=== PATIENT | male | born 1940 | race Hispanic/Latino ===

== ENCOUNTER 2019-05-28 11:01 | Emergency (ER) | payer OTHER ==
--- OUTSIDE RECORDS SUMMARY | 2019-05-28 11:04 | XMS REPORT ---
:1940 [facility] Address [address] [place] [address] Dr. Bravo [address] [place] [id number] Care Team Providers Name Role Phone Unavailable Unavailable Unavailable Problems This patient has no known problems. Allergies, Adverse Reactions, Alerts This patient has no known allergies or adverse reactions. Medications This patient has no known medications.
[2019-05-28] MEDS ORDERED: NA CHLORIDE 0.9% 500 ML ONE (11:35)
[2019-05-28] MEDS ORDERED: ONDANSETRON 4 MG/2 ML VIAL ONE (11:35)
[2019-05-28] MEDS ORDERED: MORPHINE 2 MG/ML SYR ONE (11:35)
[2019-05-28 11:52] LABS: Absolute Lymphocytes (CBC) 1.5 K/uL (0.7-4.9); Basophils % 0.8 % (0-1.3); Hematocrit 37.9 % (39.6-49.0); Lymphocytes % 25.1 % (15.3-44.8); MPV 9.5 fL (7.6-11.3); RBC Red Blood Cell Count 4.17 M/uL (4.33-5.43)
--- NOTE | 2019-05-28 12:06 | RAD REPORT ---
EXAM DESCRIPTION: RAD - Chest Single View - 05/28/2019 11:52 am CLINICAL HISTORY: PAIN Chest pain. COMPARISON: Chest Pa And Lat (2 Views) dated 04/14/2019; Chest Pa And Lat (2 Views) dated 05/14/2018; Chest Pa And Lat (2 Views) dated 04/08/2017; Chest Pa And Lat (2 Views) dated 04/08/2016 FINDINGS: Portable technique limits examination quality. The lungs are grossly clear. The heart is normal in size. Left posterior old rib fractures.
[2019-05-28 12:08] LABS: Albumin 3.3 g/dL (3.4-5.0); Bilirubin Total 0.6 mg/dL (0.2-1.0); Potassium 3.8 mmol/L (3.5-5.1); Protein, Total 7.2 g/dL (6.4-8.2)
--- NOTE | 2019-05-28 12:58 | RAD REPORT ---
EXAM DESCRIPTION: CT - Chest Abdomen Pelvis W Cont - 05/28/2019 12:42 pm CLINICAL HISTORY: Chest and abdomen pain. TRAUMA COMPARISON: No comparisons TECHNIQUE: Approximately 100 mL nonionic IV contrast was administered to the patient. All CT scans are performed using dose optimization technique as appropriate and may include automated exposure control or mA/KV adjustment according to patient size. FINDINGS: Ill-defined infiltrate is present in both posterior gutters, greater on the left, suspicio us for aspiration or pneumonia.No pleural or pericardial effusion.No intrathoracic adenopathy. The liver contains several benign-appearing cysts. No aggressive liver lesion. Cholelithiasis. The sp moses, pancreas, adrenal glands and kidneys are within normal limits. No bowel obstruction, free air, free fluid or abscess. No pathologic lymphadenopathy in the abdomen or pelvis. Evidence of prior bilateral inguinal hernia repair. Healing left posterior rib fractures are seen. No acute rib fracture evident. IMPRESSION: Acute trauma related abnormality not seen. Ill-defined infiltrate in both lung bases may be secondary to aspiration or developing pneumonia. Cholelithiasis.
--- NOTE | 2019-05-28 13:38 | ER ---
Nurse's Notes [facility] Name: Sona Wright Age: 78 yrs Sex: Male : 1940 Arrival Date: 05/28/2019 Time: 11:04 Bed 6 Private MD: April Morejon C Diagnosis: Fall due to bumping against object;Parkinson's disease;Contusion of right back wall of thorax;Pneumonia due to other specified bacteria Presentation: 05/28 11:09 Presenting complaint: states: "At 3:15 this morning, he lost his balance and fell aj1 on the floor and he already has fractured ribs" Patient reports right mid back pain. Denies hitting his head. Care prior to arrival: None. Mechanism of Injury: Fall from standing position. Trauma event details: Injury occurred in the [facility]. 11:09 Acuity: TYREE 3 aj1 11:09 Method Of Arrival: Wheelchair aj1 11:12 Transition of care: patient was not received from another setting of care. Onset of aj1 symptoms was May 28, 2019 at 03:15. Risk Assessment: Do you want to hurt yourself or someone else? Patient reports no desire to harm self or others. Initial Sepsis Screen: Does the patient meet any 2 criteria? No. Patient's initial sepsis screen is negative. Does the patient have a suspected source of infection? No. Patient's initial sepsis screen is negative. Triage Assessment: 11:14 General: Appears in no apparent distress. comfortable, Behavior is calm, cooperative, aj1 appropriate for age. Pain: Complains of pain in right subscapular area. Neuro: Level of Consciousness is awake, alert, obeys commands. Cardiovascular: Patient's skin is warm and dry. Respiratory: Airway is patent Respiratory effort is even, unlabored, Respiratory pattern is regular, symmetrical. Trauma Activation: Not Applicable Physician: ED Physician; Name: ; Notified At: ; Arrived At: Physician: General Surgeon; Name: ; Notified At: ; Arrived At: Physician: Radiology; Name: ; Notified At: ; Arrived At: Physician: Respiratory; Name: ; Notified At: ; Arrived At: Physician: Lab; Name: ; Notified At: ; Arrived At: Historical: - Allergies: 11:14 No Known Allergies; aj1 - Home Meds: 11:14 multivitamin oral cap daily [Active]; carbidopa-levodopa 25-100 mg Oral tab 2 tabs 3 aj1 times per day [Active]; atorvastatin 20 mg oral tab 1 tab once daily [Active]; felodipine 2.5 mg oral Tb24 1 tab once daily [Active]; Vitamin D3 oral oral daily [Active]; Probiotic oral oral daily [Active]; - PMHx: 11:14 Parkinsons; Hypertension; Hyperlipidemia; aj1 - Immunization history: Last tetanus immunization: unknown. - Social history:: Smoking status: Patient/guardian denies using tobacco. - Ebola Screening: : Patient denies travel to an Ebola-affected area in the 21 days before illness onset. - Family history:: not pertinent. Screenin:09 Abuse screen: Denies threats or abuse. Denies injuries from another. Tuberculosis aj1 screening: No symptoms or risk factors identified. 11:24 Nutritional screening: No deficits noted. Fall Risk Fall in past 12 months (25 points). la1 Secondary diagnosis (15 points) No IV (0 pts). Ambulatory Aid- None/Bed Rest/Nurse Assist (0 pts). Gait- Weak (10 pts.). Primary Survey: 11:09 NO uncontrolled hemorrhage observed. A: The patient is alert. Airway: patent. aj1 Breathing/Chest: Respiratory pattern: regular, Respiratory effort: spontaneous, unlabored. Circulation: Skin color: pink. Disability Alert. 11:25 Exposure/Environment: A warming method has been applied: A warm blanket has been la1 provided to the patient. 11:25 Reassessment Airway Airway Breathing/Chest Respiratory pattern Regular Respiratory la1 effort Spontaneous Circulation Color [place] Temperature Warm Disability Alert. 12:16 Reassessment Airway Airway Patent Breathing/Chest Respiratory pattern Regular la1 Respiratory effort Spontaneous Unlabored Circulation Color [place] Temperature Warm Disability Alert. Secondary Survey: 11:24 Musculoskeletal: Reports pain in right subscapular area. la1 Assessment: 11:24 General: Appears in no apparent distress. Behavior is calm, cooperative. Pain: la1 Complains of pain in right subscapular area. Neuro: Level of Consciousness is awake, alert, obeys commands, Oriented to person, place, situation. Cardiovascular: Capillary refill < 3 seconds Patient's skin is warm and dry. Respiratory: Airway is patent Respiratory effort is even, unlabored, Respiratory pattern is regular, symmetrical, Breath sounds are clear bilaterally. GI: No signs and/or symptoms were reported involving the gastrointestinal system. Abdomen is round non-distended. : No signs and/or symptoms were reported regarding the genitourinary system. 13:48 Reassessment: Patient is alert, oriented x 3, equal unlabored respirations, skin aa5 warm/dry/pink. 14:00 Reassessment: To bedside to d/c pt home, pt's requesting prescription for pain aa5 medicine, MD notified. . Vital Signs: 11:09 BP 133 / 77; Pulse 65; Resp 18; Temp 97.9; Pulse Ox 98% on R/A; Weight 60.33 kg (R); aj1 Height 5 ft. 7 in. (170.18 cm) (R); Pain 4/10; 12:15 BP 141 / 73; Pulse 76; Resp 16; Pulse Ox 98% on R/A; la1 13:50 BP 123 / 59; Pulse 62; Resp 16 S; Temp 97.6(TE); Pulse Ox 98% on R/A; aa5 11:09 Body Mass Index 20.83 (60.33 kg, 170.18 cm) aj1 [place] Coma Score: 11:09 Eye Response: spontaneous(4). Verbal Response: oriented(5). Motor Response: obeys aj1 commands(6). Total: 15. 13:50 Eye Response: spontaneous(4). Verbal Response: oriented(5). Motor Response: obeys aa5 commands(6). Total: 15. Trauma Score (Adult): 11:09 Eye Response: spontaneous(1); Verbal Response: oriented(1); Motor Response: obeys aj1 commands(2); Systolic BP: > 89 mm Hg(4); Respiratory Rate: 10 to 29 per min(4); [place] Score: 15; Trauma Score: 12 13:50 Eye Response: spontaneous(1); Verbal Response: oriented(1); Motor Response: obeys aa5 commands(2); Systolic BP: > 89 mm Hg(4); Respiratory Rate: 10 to 29 per min(4); [place] Score: 15; Trauma Score: 12 ED Course: 11:04 Patient arrived in ED. as 11:04 April Morejon MD is Private Physician. as 11:09 Patient has correct armband on for positive identification. aj1 11:09 Patient maintains SpO2 saturation greater than 95% on room air. aj1 11:10 Triage completed. aj1 11:14 Arm band placed on Patient placed in an exam room. aj1 11:17 Ernesto Frias MD is Attending Physician. shannon 11:24 Munir Pang RN is Primary Nurse. la1 11:25 Thermoregulation: warm blanket given to patient. la1 11:37 Radiology exam delayed due to lab results not completed at this time. (BUN/Creatinine). kw1 11:41 Inserted saline lock: 20 gauge in right forearm, using aseptic technique. la1 11:51 Chest Single View XRAY In Process Unspecified. EDMS 12:42 CT completed. Patient tolerated procedure well. Patient moved back from CT. kw1 12:42 CT Chest, Abdomen, Pelvis - W/Contrast: iv only, trauma In Process Unspecified. EDMS 12:52 Patient moved back from CT. sv 13:37 April Morejon MD is Referral Physician. shannon 14:00 No provider procedures requiring assistance completed. IV discontinued, intact, aa5 bleeding controlled, No redness/swelling at site. Pressure dressing applied. Administered Medications: 11:40 Drug: NS 0.9% 500 ml Route: IV; Rate: bolus; Site: right forearm; la1 12:33 Follow up: IV Status: Completed infusion la1 11:40 Drug: Zofran 4 mg Route: IVP; Site: right forearm; la1 12:33 Follow up: Response: No adverse reaction la1 11:41 Not Given (Other Intervention Used): morphine 2 mg Sub-Q once; RASS on ADMIN: Combtv4, la1 Very Agttd3, Agttd2, Rstlss1, AlertClm0, Drwsy-1, Lt Sdtn-2, Mod Sdtn-3, Dp Sdtn-4, UnArsble-5 11:41 Drug: morphine 2 mg Route: IVP; Site: right forearm; la1 12:33 Follow up: Response: No adverse reaction; Pain is decreased la1 13:48 Drug: Augmentin 875 mg Route: PO; aa5 14:00 Follow up: Response: No adverse reaction; Medication administered at discharge. aa5 Output: 14:00 Urine: 200ml (Voided); Total: 200ml. aa5 Outcome: 13:38 Discharge ordered by . shannon 13:38 Patient's length of stay was not longer than 2 hours. aa5 14:02 Discharged to home via wheelchair, with family. aa5 14:02 Condition: stable 14:02 Discharge instructions given to patient, Pt's Instructed on discharge instructions, follow up and referral plans. medication usage, Need for incentive spirometer use Demonstrated understanding of instructions, follow-up care, medications, Prescriptions given X 2. 14:07 Patient left the ED. aa5 Signatures: Dispatcher [employer] EDMS Amina Botello RN RN aj1 Agustina Pfeiffer RN RN sv Anderson, Corey, MD MD cha Martinez, Amelia as Calderon, Audri RN RN aa5 Munir Pang RN RN la1 Aniya Quach kw1 Corrections: (The following items were deleted from the chart) 14:09 14:00 Urine 200, (Voided), Output Total 200. aa5 aa5
--- NOTE | 2019-05-28 13:38 | EDPHYS ---
Physician Documentation [facility] Name: Sona Wright Age: 78 yrs Sex: Male : 1940 Arrival Date: 05/28/2019 Time: 11:04 Bed 6 Private MD: April Morejon C ED Physician Ernesto Frias HPI: 05/28 11:33 This 78 yrs old Male presents to ER via Wheelchair with complaints of Fall shannon Injury. 11:33 Details of fall: The patient fell from an upright position, while walking. Onset: The shannon symptoms/episode began/occurred last night. Associated injuries: The patient sustained upper back injury, contusion, pain. Severity of symptoms: At their worst the symptoms were mild, moderate, in the emergency department the symptoms are unchanged. The patient has experienced similar episodes in the past, several times. Historical: - Allergies: 11:14 No Known Allergies; aj1 - Home Meds: 11:14 multivitamin oral cap daily [Active]; carbidopa-levodopa 25-100 mg Oral tab 2 tabs 3 aj1 times per day [Active]; atorvastatin 20 mg oral tab 1 tab once daily [Active]; felodipine 2.5 mg oral Tb24 1 tab once daily [Active]; Vitamin D3 oral oral daily [Active]; Probiotic oral oral daily [Active]; - PMHx: 11:14 Parkinsons; Hypertension; Hyperlipidemia; aj1 - Immunization history: Last tetanus immunization: unknown. - Social history:: Smoking status: Patient/guardian denies using tobacco. - Ebola Screening: : Patient denies travel to an Ebola-affected area in the 21 days before illness onset. - Family history:: not pertinent. ROS: 11:33 Constitutional: Negative for fever, chills, and weight loss, Eyes: Negative for injury, shannon pain, redness, and discharge, ENT: Negative for injury, pain, and discharge, Neck: Negative for injury, pain, and swelling, Cardiovascular: Negative for chest pain, palpitations, and edema, Abdomen/GI: Negative for abdominal pain, nausea, vomiting, diarrhea, and constipation, Back: Negative for injury and pain, : Negative for injury, bleeding, discharge, and swelling, MS/Extremity: Negative for injury and deformity, Skin: Negative for injury, rash, and discoloration, Neuro: Negative for headache, weakness, numbness, tingling, and seizure, Psych: Negative for depression, anxiety, suicide ideation, homicidal ideation, and hallucinations, Allergy/Immunology: Negative for hives, rash, and allergies, Endocrine: Negative for neck swelling, polydipsia, polyuria, polyphagia, and marked weight changes, Hematologic/Lymphatic: Negative for swollen nodes, abnormal bleeding, and unusual bruising. 11:33 Respiratory: Positive for cough. Exam: 11:33 Constitutional: This is a well developed, well nourished patient who is awake, alert, shannon and in no acute distress. Head/Face: Normocephalic, atraumatic. Eyes: Pupils equal round and reactive to light, extra-ocular motions intact. Lids and lashes normal. Conjunctiva and sclera are non-icteric and not injected. Cornea within normal limits. Periorbital areas with no swelling, redness, or edema. ENT: Nares patent. No nasal discharge, no septal abnormalities noted. Tympanic membranes are normal and external auditory canals are clear. Oropharynx with no redness, swelling, or masses, exudates, or evidence of obstruction, uvula midline. Mucous membranes moist. Neck: Trachea midline, no thyromegaly or masses palpated, and no cervical lymphadenopathy. Supple, full range of motion without nuchal rigidity, or vertebral point tenderness. No Meningismus. Cardiovascular: Regular rate and rhythm with a normal S1 and S2. No gallops, murmurs, or rubs. Normal PMI, no JVD. No pulse deficits. Respiratory: Lungs have equal breath sounds bilaterally, clear to auscultation and percussion. No rales, rhonchi or wheezes noted. No increased work of breathing, no retractions or nasal flaring. Abdomen/GI: Soft, non-tender, with normal bowel sounds. No distension or tympany. No guarding or rebound. No evidence of tenderness throughout. Back: No spinal tenderness. No costovertebral tenderness. Full range of motion. Male : Normal genitalia with no discharge or lesions. Skin: Warm, dry with normal turgor. Normal color with no rashes, no lesions, and no evidence of cellulitis. MS/ Extremity: Pulses equal, no cyanosis. Neurovascular intact. Full, normal range of motion. Neuro: Awake and alert, GCS 15, oriented to person, place, time, and situation. Cranial nerves II-XII grossly intact. Motor strength 5/5 in all extremities. Sensory grossly intact. Cerebellar exam normal. Normal gait. Psych: Awake, alert, with orientation to person, place and time. Behavior, mood, and affect are within normal limits. 11:33 Chest/axilla: Inspection: normal, no acute changes, Palpation: tenderness, that is moderate, of the right lateral posterior chest, Axilla: are normal, Lymph nodes: lymphadenopathy is not appreciated. Vital Signs: 11:09 BP 133 / 77; Pulse 65; Resp 18; Temp 97.9; Pulse Ox 98% on R/A; Weight 60.33 kg (R); aj1 Height 5 ft. 7 in. (170.18 cm) (R); Pain 4/10; 12:15 BP 141 / 73; Pulse 76; Resp 16; Pulse Ox 98% on R/A; la1 13:50 BP 123 / 59; Pulse 62; Resp 16 S; Temp 97.6(TE); Pulse Ox 98% on R/A; aa5 11:09 Body Mass Index 20.83 (60.33 kg, 170.18 cm) aj1 [place] Coma Score: 11:09 Eye Response: spontaneous(4). Verbal Response: oriented(5). Motor Response: obeys aj1 commands(6). Total: 15. 13:50 Eye Response: spontaneous(4). Verbal Response: oriented(5). Motor Response: obeys aa5 commands(6). Total: 15. Trauma Score (Adult): 11:09 Eye Response: spontaneous(1); Verbal Response: oriented(1); Motor Response: obeys aj1 commands(2); Systolic BP: > 89 mm Hg(4); Respiratory Rate: 10 to 29 per min(4); [place] Score: 15; Trauma Score: 12 13:50 Eye Response: spontaneous(1); Verbal Response: oriented(1); Motor Response: obeys aa5 commands(2); Systolic BP: > 89 mm Hg(4); Respiratory Rate: 10 to 29 per min(4); [place] Score: 15; Trauma Score: 12 MDM: 11:17 Patient medically screened. [facility] 11:36 Data reviewed: vital signs, nurses notes, lab test result(s), EKG, radiologic studies. [facility] 05/28 11:32 Order name: CBC with Diff; Complete Time: 12:43 [facility] 05/28 11:32 Order name: Comprehensive Metabolic Panel; Complete Time: 12:43 [facility] 05/28 11:32 Order name: CT Chest, Abdomen, Pelvis - W/Contrast: iv only, trauma; Complete Time: [facility] 13:36 05/28 11:32 Order name: Lipase; Complete Time: 12:43 [facility] 05/28 11:32 Order name: INCENTIVE SPIROMETRY [facility] 05/28 13:09 Order name: Urine Dipstick--Ancillary (enter results) 05/28 11:32 Order name: Urine Dipstick-Ancillary (obtain specimen); Complete Time: 13:26 [facility] 05/28 11:32 Order name: Chest Single View XRAY; Complete Time: 12:43 [facility] Administered Medications: 11:40 Drug: NS 0.9% 500 ml Route: IV; Rate: bolus; Site: right forearm; la1 12:33 Follow up: IV Status: Completed infusion la1 11:40 Drug: Zofran 4 mg Route: IVP; Site: right forearm; la1 12:33 Follow up: Response: No adverse reaction la1 11:41 Not Given (Other Intervention Used): morphine 2 mg Sub-Q once; RASS on ADMIN: Combtv4, la1 Very Agttd3, Agttd2, Rstlss1, AlertClm0, Drwsy-1, Lt Sdtn-2, Mod Sdtn-3, Dp Sdtn-4, UnArsble-5 11:41 Drug: morphine 2 mg Route: IVP; Site: right forearm; la1 12:33 Follow up: Response: No adverse reaction; Pain is decreased la1 13:48 Drug: Augmentin 875 mg Route: PO; aa5 14:00 Follow up: Response: No adverse reaction; Medication administered at discharge. aa5 Disposition: 05/28/19 13:38 Discharged to Home. Impression: Fall due to bumping against object, Parkinson's disease, Contusion of right back wall of thorax, Pneumonia due to other specified bacteria. - Condition is Stable. - Discharge Instructions: Community-Acquired Pneumonia, Adult, Rib Fracture, Community-Acquired Pneumonia, Adult, [id number], Fall Prevention in the Home, [id number], Aspiration Precautions, Adult, Rib Fracture, Mere-ml-Ttys, Parkinson Disease, [id number]. - Prescriptions for Augmentin 875- 125 mg Oral Tablet - take 1 tablet by ORAL route every 12 hours for 7 days; 14 tablet. Tylenol- Codeine #3 300-30 mg Oral Tablet - take 2 tablets by ORAL route every 6 hours As needed; 20 tablet. - Medication Reconciliation Form, Thank You Letter, Antibiotic Education, Prescription Opioid Use form. - Follow up: April Morejon MD; When: 2 - 3 days; Reason: Recheck today's complaints, Continuance of care, Re-evaluation by your physician. - Problem is new. - Symptoms have improved. Signatures: Dispatcher [employer] EDMS Amina Botello RN RN aj1 Ernesto Frias MD MD cha Calderon, Audri, RN RN aa5 Munir Pang RN RN la1 Corrections: (The following items were deleted from the chart) 14:07 13:38 05/28/2019 13:38 Discharged to Home. Impression: Fall due to bumping against aa5 object; Parkinson's disease; Contusion of right back wall of thorax; Pneumonia due to other specified bacteria. Condition is Stable. Forms are Medication Reconciliation Form, Thank You Letter, Antibiotic Education, Prescription Opioid Use. Follow up: April Morejon; When: 2 - 3 days; Reason: Recheck today's complaints, Continuance of care, Re-evaluation by your physician. Problem is new. Symptoms have improved. shannon
[2019-05-28] MEDS ORDERED: AMOX/K CLAV 875 MG TAB ONE (13:48)
[2019-05-28 14:08] LABS: Urine Blood TRACE (NEG); Urine Glucose NEGATIVE (NEG); Urine Protein NEGATIVE (NEG); Urine pH 6.5 (5.0-7.0)
[2019-05-28 15:46] VITALS: TEMP 97.9; O2SAT 98
[2019-05-28 15:47] VITALS: BP 141/73
== END 2019-05-28 14:07 | disposition home or self-care (01) ==
LOC: ER 11:01
DX: S20.221A Contusion of right back wall of thorax, initial encounter (principal); J15.8 Pneumonia due to other specified bacteria; G20 Parkinson's disease; W18.00XA Striking against unspecified object with subsequent fall, initial encounter; Y93.01 Activity, walking, marching and hiking; Y92.9 Unspecified place or not applicable; I10 Essential (primary) hypertension; E78.5 Hyperlipidemia, unspecified
CPT/HCPCS: 96361; 85025; 36415; 81003; 83690; 80053; 71260; 74177; 71045; 96375; 96374; 99285; Q9967; J2270; J7040; J2405